=== PATIENT | female | born 1940 | race Caucasian/White ===

== ENCOUNTER → 2016-04-26 | Outpatient (CLI) | payer MEDICARE, OTHER ==
[~2016-04-26] VITALS: Ht 149.9 cm; Wt 52.6 kg
[~2016-04-26] MED LIST: ACET325T9 PO; ACLI400A2 IH; ALBU0.63 NEB; ALBU2.5V5 NEB; Cefpodoxime Proxetil PO; DRON10CA PO; DRON5CAP2 PO; ESOM20CA PO; ESOM40CA PO; ESOM40CA47; FERR89TA PO; FLUT16SP NAS; FLUT9.9S NS; GABA-585 PO; GABA-586 PO; GABA300C8; HEPARIN PF 500 UNIT/5 ML DISP.SYRIN. IV ONE; Hydrocodone/Acetaminophen PO; IPRA3AMP NEB; LEVO750T31 PO; LIDOCAINE 1% / SOD BICARB 8.4% 20 ML VIAL. IJ ONE; LISI-338 PO; LISI5TAB PO; MAGN400T30 PO; MOME13HF2 IH; MULT-246 PO; Megestrol Acetate PO; ONDA-35 PO; ONDA-36; ONDA4TAB10 PO; ONDA8TAB15 PO; POTA20TA4 PO; POTA500T5 PO; PRED-220; PRED-220 PO; PROAIR HFA8.5 GM IH
[2016-04-26 10:01] VITALS: BP 104/61
[2016-04-26 10:11] LABS: BASO # 0.1 x10^3/uL (0.0-0.2); BASO % 1 % (0-3); EOS % 2 % (0-3); HEMATOCRIT 28.2 % (36.0-47.0); HEMOGLOBIN 8.9 g/dL (12.0-15.5); LYMPH # 0.4 x10^3/uL (1.0-4.8); LYMPH % 6 % (24-48); MEAN CORPUSCULAR HEMOGLOBIN 24 pg (25-35); MEAN CORPUSCULAR HGB CONC 32 g/dL (31-37); MEAN CORPUSCULAR VOLUME 75 fL (79-100); MONO % 6 % (0-9); NEUT % 86 % (31-73); PLATELET COUNT 397 x10^3/uL (140-400); RED BLOOD COUNT 3.75 x10^6/uL (3.50-5.40); RED CELL DISTRIBUTION WIDTH 13.8 % (11.5-14.5); WHITE BLOOD COUNT 7.5 x10^3/uL (4.0-11.0)
[2016-04-26 10:20] LABS: INR 1.3 (0.8-1.1); PROTHROMBIN TIME PATIENT 15.2 SEC (11.7-14.0)
--- NOTE | 2016-04-26 12:14 | RAD ---
Diagnostic ultrasound of the right chest. Clinical indication: History of pleural effusion, patient is here for ultrasound-guided thoracentesis. Technique and findings: Real-time grayscale ultrasound imaging of the right chest reveals a very small simple appearing pleural effusion, with a volume estimated at less than 100 cc. This is significantly smaller than seen on the previous chest CT scan from March 21, 2016. Hardcopy images were recorded. Thoracentesis was deferred. Impression: 1. Small right pleural effusion, volume estimated at less than 100 cc.
[2016-04-26 12:29] LABS: % BASOS 1 % (0-3)
[2016-04-26 12:30] LABS: PLT ESTIMATE ADEQUATE (ADEQUATE)
== END | disposition home or self-care (01) ==
LOC: INTRAD 08:54
PROVIDERS: ATTEND Internal Medicine Hematology & Oncology
DX: J90 Pleural effusion, not elsewhere classified (principal); I10 Essential (primary) hypertension; Z87.891 Personal history of nicotine dependence
CPT/HCPCS: 32555; 36415; 76942; 85007; 85027; 85610

== ENCOUNTER → 2016-06-01 | Outpatient (CLI) | payer MEDICARE, OTHER ==
[2016-04-26 10:01] VITALS: BP 104/61
[~2016-06-01] MED LIST changes: -HEPARIN PF 500 UNIT/5 ML DISP.SYRIN. IV ONE; -LIDOCAINE 1% / SOD BICARB 8.4% 20 ML VIAL. IJ ONE
--- NOTE | 2016-06-01 14:24 | RAD ---
EXAM: Chest 2 views. HISTORY: Cough. COMPARISON: 10/12/2015. FINDINGS: Frontal and lateral views of the chest are obtained. A right-sided port catheter has its tip in the superior cavoatrial junction. There is interval progression of the right hilar mass/consolidation with surrounding architectural distortion and volume loss. There is an airspace infiltrate in the left base, not clearly changed since the prior study. There are milder scattered opacities in the left upper lobe. Hyperinflation is consistent with chronic obstructive pulmonary disease. There is a small right pleural effusion. There is no pneumothorax. The heart is not enlarged. There are atherosclerotic calcifications of the aorta. IMPRESSION: 1. Interval progression of a right perihilar mass with surrounding architectural distortion and posttreatment changes. Refer to recent PET CT for more detail. 2. Chronic left basilar infiltrates and bronchiectasis. 3. Chronic obstructive pulmonary disease. 4. Small right pleural effusion
== END | disposition home or self-care (01) ==
LOC: RAD 13:16
PROVIDERS: ATTEND Nurse Practitioner Adult Health
DX: J44.9 Chronic obstructive pulmonary disease, unspecified (principal); J90 Pleural effusion, not elsewhere classified; R91.8 Other nonspecific abnormal finding of lung field; I70.0 Atherosclerosis of aorta
CPT/HCPCS: 71020